=== PATIENT | female | born 1945 | race Caucasian/White ===

== ENCOUNTER 2022-04-23 17:48 | Emergency (ER) | payer OTHER, SELFPAY ==
--- NOTE | ~2022-04-23 | XR_ITS ---
EXAMINATION: XR RIBS, RIGHT CLINICAL INFORMATION: Injury and rib pain COMPARISON: None TECHNIQUE: 3 views of the right ribs were obtained. FINDINGS: Lungs are clear. No consolidation, pneumothorax, or pleural effusion. The cardiomediastinal silhouette and pulmonary vasculature are normal. Right breast soft tissue density likely breast implant. Calcified loose body projects at the left shoulder in the region of the subscapularis recess. Osseous structures are unremarkable. No acute displaced rib fracture are identified. XR/XR ribs RT min 3V w CXR1V IMPRESSION: 1. No acute pulmonary process. 2. No acute displaced rib fracture identified.
--- NOTE | ~2022-04-23 | CT_ITS ---
EXAMINATION: CT CHEST WITHOUT CONTRAST CLINICAL INFORMATION: Breast implant leakage COMPARISON: None TECHNIQUE: Multidetector volumetric CT imaging of the chest was done. Axial MIP volume rendering provided. Sagittal and coronal reformatted images were obtained. This CT examination was performed using dose optimization techniques as appropriate, variously including the following: *Automated exposure control *Adjustment of mA and/or kV according to patient size (this includes techniques or standardized protocols for targeted exams where dose is matched to indication/reason for exam; i.e. extremities or head) *Use of iterative reconstruction technique DLP: 329 mGy-cm FINDINGS: LUNGS: Diffuse mild bronchial thickening without bronchiectasis. No parenchymal consolidation. There are scattered pulmonary nodules which measure up to 4 mm (see inman images), largest within the left lower lobe on series 5, image 301 MEDIASTINUM: Normal heart size. Borderline aneurysmal dilatation of ascending aorta measuring up to 4.0 cm. No mediastinal or hilar lymphadenopathy. PLEURA: There is no pleural effusion. No pleural mass or thickening. CHEST WALL/AXILLA: Intact prepectoral saline breast implant on the right. No axillary lymphadenopathy. UPPER ABDOMEN: Hepatic steatosis. OSSEOUS STRUCTURES: No acute or suspicious osseous abnormalities. CT/CT chest wo con IMPRESSION: * Right prepectoral saline breast implant shows a normal contour. No evidence of implant rupture. * Scattered pulmonary nodules measure up to 4 mm. Presumably the patient has a history of breast cancer although no history is provided. Fleischner Society guidelines do not apply patients with a history of cancer. Follow-up CT chest interval is a clinical determination. * Ascending aorta is top normal in caliber measuring 4.0 cm. * Hepatic steatosis.
[2022-04-23 18:36] VITALS: BP 193/122; PULSE 98; RESP 18; TEMP 37.5; O2SAT 95; BMI 33.9
--- NOTE | 2022-04-23 21:10 | ED_ITS ---
HPI - General Adult General Chief complaint: General Medical Stated complaint: rib pain on R side Time Seen by Provider: 04/23/22 21:00 Source: patient Mode of arrival: ambulatory Limitations: no limitations History of Present Illness HPI narrative: Patient comes emergency room complaining of right-sided rib pain. The patient states that yesterday she was peeling green peas. One of the green peas fell to the ground and rolled away from her. Patient tried cleaning over a chair to grab the pea, patient put too much pressure on her ribs on the right side and since then she has had significant pain. Patient also states that she has noticed that her right breast implant got twice as big and is having breast discomfort. Related Data Previous Rx's Medication Instructions Recorded oxycodone 5 mg tablet 5 mg PO BID PRN pain #6 tabs 04/23/22 Allergies Allergy/AdvReac Type Severity Reaction Status Date / Time avocado Allergy Itching Verified 04/23/22 18:36 eggplant Allergy Itching Verified 04/23/22 18:36 latex Allergy Anaphylaxis Verified 04/23/22 18:36 Review of Systems Review of Systems: Constitutional : No Weight loss, No Fever, No Chills, No Night Sweats, No Fatigue, No Malaise ENT/Mouth : No Hearing loss, No Ear Pain, No Nasal Congestion, No Sinus Pain, No Hoarseness, No sore throat, No Rhinorrhea, No Swallowing Difficulty Eyes: No Eye Pain, No Swelling, No Redness, No Foreign Body, No Discharge, No Vision Changes Cardiovascular : No Chest Pain, No SOB, No Dyspnea on Exertion, No Orthopnea, No Edema, No Palpitations Respiratory : No Cough, No Sputum, No Wheezing, No Smoke Exposure, No Dyspnea Gastrointestinal : No Nausea, No Vomiting, No Diarrhea, No Constipation, No abdominal Pain, No Hematochezia, No Melena Genitourinary : no irregular bleeding, No Dysuria, No Urinary Frequency, No Hematuria, No Urinary Incontinence, No Urgency, No Flank Pain, No Urinary Flow Changes, No Hesitancy Musculoskeletal : No joint pain, No Myalgias, No Joint Swelling, complaining of right rib pain and complaining of right breast being twice the normal size Skin : No Skin Lesions, No rash Neuro : No Weakness, No Numbness, No Paresthesias, No Loss of Consciousness, No Dizziness, No Headache Psych : No Anxiety/Panic, No Depression, No SI/HI/AH/VH, No Social Issues, Heme/Lymph: No Bruising, No Bleeding,No Lymphadenopathy Endocrine : No Polyuria, No Polydipsia, No Temperature Intolerance [facility] Past Medical History Medical History (Updated 04/23/22 @ 22:44 by Charline Duarte MD) Hypertension Social History Social History Advance Directives: No Advance Directives Information Provided: No Physical Exam ED Vital Signs: Vital Signs - 24 hr 04/23/22 18:36 Temperature 99.5 F Pulse Rate 98 Respiratory Rate 18 Blood Pressure 193/122 H Pulse Oximetry 95 Oxygen Delivery Method Room Air BMI result Body Mass Index 33.9 Const Other: Appearance: Alert. Oriented X3. No acute distress. Eyes: Pupils equal, round and reactive to light. ENT: Pharynx normal. Neck: Normal inspection. Neck supple. No lymph nodes noted. No crepitus CVS: Normal heart rate and rhythm. Pulses normal. Normal S1 and S2 Respiratory: No respiratory distress. Breath sounds normal. No Wheezing. No rales Abdomen: Soft and nontender. No rigidity. No distention. Skin: Skin warm and dry. Normal skin color. Normal skin turgor. No ecchymosis, pain to palpation over the ribs on the right side and under the right axilla. Right breast is fluctuant, tender to palpation underneath the right breast Extremities: No lower extremity edema. No Lacerations. No Rash Neuro: Oriented X 3. No motor deficit. No sensory deficit. Moving all extremities. No slurred speech. CN 2 through 12 grossly intact Psych: calm, cooperative, normal affect Course Course Course Narrative: Chest x-ray was negative for fracture ribs. Patient states that her right breast it looks twice its normal size, concerned that the implant may have popped. CT scan shows normal breast implant. No rib fracture ribs. Patient received 1 dose of p.o. oxycodone. Medical Decision Making Imaging Data CT scan - chest: Radiologist's impression: FINDINGS: LUNGS: Diffuse mild bronchial thickening without bronchiectasis. No parenchymal consolidation. There are scattered pulmonary nodules which measure up to 4 mm (see inman images), largest within the left lower lobe on series 5, image 301? MEDIASTINUM: Normal heart size. Borderline aneurysmal dilatation of ascending aorta measuring up to 4.0 cm. No mediastinal or hilar lymphadenopathy.? PLEURA: There is no pleural effusion. No pleural mass or thickening.? CHEST WALL/AXILLA: Intact prepectoral saline breast implant on the right. No axillary lymphadenopathy. UPPER ABDOMEN: Hepatic steatosis.? OSSEOUS STRUCTURES: No acute or suspicious osseous abnormalities.? CT/CT chest wo con IMPRESSION: *? Right prepectoral saline breast implant shows a normal contour. No evidence of implant rupture. *? Scattered pulmonary nodules measure up to 4 mm. Presumably the patient has a history of breast cancer although no history is provided. Fleischner Society guidelines do not apply patients with a history of cancer. Follow-up CT chest interval is a clinical determination. *? Ascending aorta is top normal in caliber measuring 4.0 cm. *? Hepatic steatosis. Discharge Plan Discharge Clinical Impression: Costochondritis Patient Disposition: Home, Self-Care Instructions: Costochondritis (ED) Additional Instructions: Please follow-up with your primary care physician tomorrow. If you have any worsening or new symptoms, please return to the emergency room or call 911 Prescriptions: New oxycodone 5 mg tablet 5 mg PO BID PRN (Reason: pain) Qty: 6 0RF Rx Instructions: Partial Fill upon patient request.
[2022-04-23] MEDS: oxyCODONE HCl Immed Release 5 MG TABLET 2.5 MG PO (23:18)
== END 2022-04-23 23:27 | disposition home or self-care (01) ==
PROVIDERS: Emergency Provider Emergency Medicine
DX: R07.81 Pleurodynia (principal); M94.0 Chondrocostal junction syndrome [Tietze]; Z79.899 Other long term (current) drug therapy
CPT/HCPCS: 71101; 71250; 99283

== ENCOUNTER 2022-04-26 17:41 | Emergency (ER) | payer OTHER, MEDICARE, SELFPAY ==
[2022-04-26 18:30] VITALS: BP 179/113; PULSE 100; RESP 18; TEMP 36.7; O2SAT 95; BMI 34.1
--- NOTE | 2022-04-26 18:33 | ECG_ITS ---
Test Reason : CHEST PAIN Blood Pressure : / mmHG Vent. Rate : 099 BPM Atrial Rate : 099 BPM P-R Int : 184 ms QRS Dur : 108 ms QT Int : 374 ms P-R-T Axes : 066 -02 072 degrees QTc Int : 479 ms Normal sinus rhythm Incomplete left bundle branch block Minimal voltage criteria for LVH, may be normal variant ( [place]om[place] product ) Borderline ECG No previous ECGs available Referred By: Generic ED Physician Electronically Signed By:REBA ALLISON
[2022-04-26 18:47] VITALS: BP 175/116; PULSE 98; RESP 14; TEMP 36.9; O2SAT 97
--- NOTE | 2022-04-26 19:23 | ED_ITS ---
HPI - General Adult General Chief complaint: General Medical Stated complaint: High Blood Pressure Headache Time Seen by Provider: 04/26/22 19:23 Source: patient and family Mode of arrival: ambulatory Limitations: no limitations History of Present Illness HPI narrative: 76-year-old female who presents emergency department for evaluation of elevated blood pressure. The patient was seen here on Sunday (4 days prior to evaluation) for an injury to her right chest wall. The patient was leaning over a chair and developed pain in her right chest. She was seen in the emergency department had a CT scan of the chest which revealed no acute fracture her other cause for the pain. She was diagnosed with costochondritis. At that time she was noted to have an elevated blood pressure and was felt to be secondary to her pain. The patient states that her blood pressure normally runs 140/90. She has been taking her blood pressure at home and it has been as high as 170-178/112-115. The patient contacted her web weaver Dr. Elda Botello office and she was advised by nursing staff to go to the emergency department for evaluation. The patient states that she has been asymptomatic except for the right-sided chest pain. She denied headache, weakness, nausea, vomiting, shortness of breath, dyspnea on exertion, frequency, urgency, dysuria. She states she has lost 30 lb over 8 months. Related Data Previous Rx's Medication Instructions Recorded oxycodone 5 mg tablet 5 mg PO BID PRN pain #6 tabs 04/23/22 losartan 50 mg tablet 50 mg PO DAILY #30 tabs 04/26/22 Allergies Allergy/AdvReac Type Severity Reaction Status Date / Time acetaminophen Allergy Unknown Verified 04/26/22 18:29 avocado Allergy Itching Verified 04/26/22 18:28 eggplant Allergy Itching Verified 04/23/22 18:36 latex Allergy Anaphylaxis Verified 04/23/22 18:36 Review of Systems Review of Systems: Yes all other systems are reviewed and are negative [facility] Past Medical History [facility] Narrative: Past medical history: Diabetes mellitus, hypertension, hyperlipidemia, coronary disease, myocardial infarction 5 years prior, gastritis. Past surgical history: Partial nephrectomy secondary to renal carcinoma. Breast cancer status post mastectomy. Social history: She denies tobacco, alcohol and drug use. Medical History (Updated 04/26/22 @ 22:39 by Juan Guardado MD) Hypertension Social History Social History Patient Tobacco Use Status: Never used Tobacco Use of substances other than those prescribed or required for medical reasons: No Advance Directives: Yes Advance Directives Information Provided: No Advance Directives on File: No Physical Exam ED Vital Signs: Vital Signs - 24 hr 04/26/22 18:30 04/26/22 18:47 04/26/22 20:43 Temperature 98.1 F 98.4 F Pulse Rate 100 98 92 Respiratory Rate 18 14 12 Blood Pressure 179/113 H 175/116 H 175/115 H Pulse Oximetry 95 97 97 Oxygen Delivery Method Room Air Room Air Room Air BMI result Body Mass Index 34.1 Const Other: Awake, alert, female patient, very pleasant and cooperative, does not appear to be in distress, answers all questions appropriately, elevated BMI 34 HENMT Head: Yes normal to inspection, Yes normocephalic and Yes atraumatic Ears: external ears normal General nose exam: Normal external nose present Face and sinus: Yes normal facial exam Mouth: Normal oral and palatal mucosa present Throat: Yes posterior oropharynx normal Eyes General: appearance normal, both eyes and all related structures Pupils: Equal, round and reactive pupils present Neck Neck: Yes normal visual inspection, Yes no lymphadenopathy, Yes trachea midline and Yes supple Chest Chest palpation & inspection: normal inspection of the chest and tenderness (Left anterior chest wall tenderness under the left breast) Resp Effort & Inspection: normal respiratory effort and able to speak in complete sentences Auscultation: clear to auscultation bilaterally Cardio Rate: regular rate Rhythm: regular rhythm Heart sounds: S1 normal heart sound present, S2 normal heart sound present and no murmurs GI Inspection: Yes normal to inspection Palpation (GI): Soft to palpation, Tenderness to palpation present (GI) (Mild diffuse tenderness, moderate epigastric and moderate the LLQ) other (Left-sided hernia) and no guarding Auscultation: normal bowel sounds General: Yes no CVA tenderness Back/Spine/Pelvis Back: no CVA tenderness Skin General skin exam: no rashes or lesions noted Neuro Cranial nerves: Yes CN's II-XII intact bilaterally and Yes Equal, round and reactive pupils present Cognition (Neuro): normal cognition Motor exam (neuro): 5/5 motor strength present throughout Extrem General: Yes normal to inspection Psych Appearance: grossly normal Speech and movement: Normal speech and movement present Affect: normal affect Attitude: cooperative Thought process: Normal thought process present Thought content: Normal thought content present Course Course Course Narrative: 76-year-old female who presents emergency department for evaluation of elevated blood pressures. Patient did have a chest wall injury 4 days prior, was seen in the emergency department and had a negative CT scan of the chest. Patient was d iagnosed with costochondritis. At that time the patient was noted to have elevated blood pressures. Patient has been checking her blood pressures at home and they have been elevated above her baseline. Patient was advised to go to the emergency department by her providers office for evaluation. Except for the patient's chest pain she has been asymptomatic. Patient's physical examination did reveal tenderness palpation of her right chest wall but this is secondary to her injury, she also has diffuse abdominal tenderness with epigastric and left upper quadrant tenderness. Patient's blood pressures here in the emergency department or 179/113 and 175/116. I did order laboratory evaluation to include CBC, CMP, troponin, TSH with reflex T4, urinalysis. I will also obtain an EKG on the patient. Patient's neurologic exam was nonfocal I do not think that she needs imaging of her brain since that are not think that she has a stroke as the cause for elevated blood pressure. 2243: The patient's laboratory evaluation did reveal an elevated BUN of 35 with a normal creatinine 0.98. The patient's urinalysis did reveal 4+ protein suggests the patient has significant protein urea. Urinalysis was unremarkable and not consistent with a urinary tract infection. EKG was unremarkable and troponin was detectable but not elevated. Given her hypertension and proteinuria, the patient's losartan was increased from 25 mg once a day to 50 mg once a day. The patient was advised to check her blood pressure 3 times a week, write these down and discuss these readings with her doctor. Patient has an elevated TSH with a pending T4. I did discuss this with the patient the patient states she was seeing a electronics installer within the next 1-2 weeks. Medical Decision Making Lab Data Lab results reviewed: Yes I reviewed the patient's lab results. Result diagrams: 04/26/22 21:16 04/26/22 21:16 Labs: Lab Results 04/26/22 04/26/22 04/26/22 Range/Units 20:51 21:16 21:16 WBC 6.1 (4.8-10.8) X10*3/uL RBC 4.13 L (4.20-5.50) X10*6/uL Hgb 12.6 (12.0-16.0) g/dl Hct 35.2 L (37.0-47.0) % MCV 85.2 (80.0-98.0) fL MCH 30.5 (27.0-33.0) pg MCHC 35.8 H (31.0-35.0) g/dl RDW 13.5 (11.0-16.0) % Plt Count 165 (160-400) X10*3/uL MPV 9.7 (9.4-12.3) fL Immature Gran % (Auto) 0.3 (0.0-0.4) % Neut % (Auto) 46.7 (45-73) % Lymph % (Auto) 39.4 (20-40) % [place] % (Auto) 10.1 (2-11) % Eos % (Auto) 3.3 (0-4) % Baso % (Auto) 0.2 (0-2) % Lymph # (Auto) 2.4 (1.2-4.9) X10*3/uL [place] # (Auto) 0.6 (0.1-1.2) X10*3/uL Eos # (Auto) 0.2 (0.0-0.4) X10*3/uL Baso # (Auto) 0.0 (0.0-0.2) X10*3/uL Abs Immat Gran (auto) 0.02 (0.00-0.03) X10*3/uL Absolute Neuts (auto) 2.9 (2.0-8.3) x10*3/uL Absolute Nucleated RBC 0.000 (0.0-0.012) X10*3/uL Nucleated RBC % (auto) 0.0 (0.0-0.2) /100WBC Sodium (135-145) mmol/L Potassium (3.3-5.1) mmol/L Chloride (96-108) mmol/L Carbon Dioxide (22-29) mmol/L Anion Gap (12-20) BUN (9-16) mg/dL Creatinine (0.5-1.4) mg/dL Estim Creat Clear Calc Estimated GFR Random Glucose (60-115) mg/dL Calcium (8.4-10.2) mg/dL Total Bilirubin (0.0-1.0) mg/dL AST (5-31) U/L ALT (0-31) U/L Alkaline Phosphatase (39-117) U/L Troponin I High Sens 5.1 (<3.5-17.0) ng/L Total Protein (6.5-8.0) g/dL Albumin (3.5-5.0) g/dL TSH (0.32-4.0) uIU/mL Free T4 (0.71-1.85) ng/dL Urine Color Yellow Urine Appearance Clear Urine pH 5.5 (5.0-8.0) Ur Specific [place] 1.020 (1.005-1.025) Urine Protein >=1000 (4+) H (Neg-Trace) mg/dL Urine Glucose (UA) Negative (Negative) mg/dL Urine Ketones Negative (Negative) mg/dL Urine Blood Negative (Negative) Urine Nitrite Negative (Negative) Ur Leukocyte Esterase Moderate (2+) H (Negative) Urine RBC 3-5 H (0-2) /HPF Urine WBC 11-20 H (0-5) /HPF Ur Squamous Epith Cells 6-10 (0-2) /HPF Urine Bacteria Trace (None Seen) Hyaline Casts 0-2 (0-2) /LPF Granular Casts Present 04/26/22 04/26/22 Range/Units 21:16 21:16 WBC (4.8-10.8) X10*3/uL RBC (4.20-5.50) X10*6/uL Hgb (12.0-16.0) g/dl Hct (37.0-47.0) % MCV (80.0-98.0) fL MCH (27.0-33.0) pg MCHC (31.0-35.0) g/dl RDW (11.0-16.0) % Plt Count (160-400) X10*3/uL MPV (9.4-12.3) fL Immature Gran % (Auto) (0.0-0.4) % Neut % (Auto) (45-73) % Lymph % (Auto) (20-40) % [place] % (Auto) (2-11) % Eos % (Auto) (0-4) % Baso % (Auto) (0-2) % Lymph # (Auto) (1.2-4.9) X10*3/uL [place] # (Auto) (0.1-1.2) X10*3/uL Eos # (Auto) (0.0-0.4) X10*3/uL Baso # (Auto) (0.0-0.2) X10*3/uL Abs Immat Gran (auto) (0.00-0.03) X10*3/uL Absolute Neuts (auto) (2.0-8.3) x10*3/uL Absolute Nucleated RBC (0.0-0.012) X10*3/uL Nucleated RBC % (auto) (0.0-0.2) /100WBC Sodium 139 (135-145) mmol/L Potassium 4.6 (3.3-5.1) mmol/L Chloride 106 (96-108) mmol/L Carbon Dioxide 22 (22-29) mmol/L Anion Gap 16 (12-20) BUN 35 H (9-16) mg/dL Creatinine 0.98 (0.5-1.4) mg/dL Estim Creat Clear Calc 55.8 Estimated GFR 55 Random Glucose 101 (60-115) mg/dL Calcium 8.8 (8.4-10.2) mg/dL Total Bilirubin 0.2 (0.0-1.0) mg/dL AST 32 H (5-31) U/L ALT 29 (0-31) U/L Alkaline Phosphatase 41 (39-117) U/L Troponin I High Sens (<3.5-17.0) ng/L Total Protein 6.9 (6.5-8.0) g/dL Albumin 3.6 (3.5-5.0) g/dL TSH 10.06 H (0.32-4.0) uIU/mL Free T4 0.78 (0.71-1.85) ng/dL Urine Color Urine Appearance Urine pH (5.0-8.0) Ur Specific Randolph (1.005-1.025) Urine Protein (Neg-Trace) mg/dL Urine Glucose (UA) (Negative) mg/dL Urine Ketones (Negative) mg/dL Urine Blood (Negative) Urine Nitrite (Negative) Ur Leukocyte Esterase (Negative) Urine RBC (0-2) /HPF Urine WBC (0-5) /HPF Ur Squamous Epith Cells (0-2) /HPF Urine Bacteria (None Seen) Hyaline Casts (0-2) /LPF Granular Casts ECG Data Attestation: I personally reviewed and interpreted this ECG as follows: Interpretation: 1859: Normal sinus rhythm rate of 99, normal ID interval, prolonged QRS duration of 108 milliseconds prolonged QTC interval of 479 milliseconds, no ST segment elevation, no ST segment depression, Q-wave in lead 3 and AVF, no PACs, no PVCs, incomplete left bundle-branch block, no old EKG for comparison. Discharge Plan Discharge Clinical Impression: Hypertension, Diabetes mellitus with proteinuria Patient Disposition: Home, Self-Care Additional Instructions: Your EKG was unremarkable. Your high sensitivity troponin I was detectable but not elevated at 5.1 (less than 17 is normal in women). This is reassuring and suggests that you did not have a heart attack. Your kidney numbers revealed an elevated BUN of 35 but a normal creatinine of 0.98 You do not have a urine infection based on your urine. Your urine revealed 4+ protein (normal is no protein in the urine). Given your high protein in your urine and your high blood pressure, I believe that you should increase your losartan from 25 mg once a day to 50 mg once a day. You should discuss this with your doctor as well. Your thyroid stimulating hormone ( TSH) was high at 10.06. (normal is 0.32- 4.0.) A high TSH can sometimes suggests that your thyroid is underactive. Your free T4 (thyroid hormone) is pending. You can check this through the patient portal. If this is low then you have an under active thyroid. If this is normal then you need to see an electronics installer determine why you TSH is high. Check your blood pressures on Mondays, Wednesdays and Fridays and write these down to showed to your doctor. When we make a change in your blood pressure medications it takes 4-6 weeks for your blood pressure to respond. Follow-up with your doctor in 2 days. Please return to the emergency department if your symptoms get worse or if you develop any symptoms that are concerning to you. Prescriptions: New losartan 50 mg tablet 50 mg PO DAILY Qty: 30 0RF No Action oxycodone 5 mg tablet 5 mg PO BID PRN (Reason: pain) Qty: 6 0RF Rx Instructions: Partial Fill upon patient request.
[2022-04-26 20:43] VITALS: BP 175/115; PULSE 92; RESP 12; O2SAT 97
[2022-04-26 20:58] LABS: Appearance Urine Clear; Color Urine Yellow; Glucose Urine UA Negative (Negative); Leukocyte Esterase Urine Moderate (2+) (Negative); Nitrite Urine Negative (Negative); PH 5.5 (5.0-8.0); Urine Blood Negative (Negative); Urine Ketones Negative (Negative); Urine Protein >=1000 (4+) mg/dL (Neg-Trace)
[2022-04-26 21:23] LABS: MANUAL DIFF FLAG NO
[2022-04-26 21:24] LABS: Basophils Percent Auto 0.2 % (0-2); Eosinophils Absolute Auto 0.2 X10*3/uL (0.0-0.4); Eosinophils Percent Auto 3.3 % (0-4); Hematocrit 35.2 % (37.0-47.0); Hemoglobin 12.6 g/dl (12.0-16.0); Imm Gran Abs Auto 0.02 X10*3/uL (0.00-0.03); Imm Gran Pct Auto 0.3 % (0.0-0.4); Lymphocytes Absolute Auto 2.4 X10*3/uL (1.2-4.9); Lymphocytes Percent Auto 39.4 % (20-40); Mean Corpuscular HGB Conc 35.8 g/dl (31.0-35.0); Mean Corpuscular Hemoglobin 30.5 pg (27.0-33.0); Mean Corpuscular Volume 85.2 fL (80.0-98.0); Mean Platelet Volume 9.7 fL (9.4-12.3); Monocytes Absolute Auto 0.6 X10*3/uL (0.1-1.2); Monocytes Percent Auto 10.1 % (2-11); Neutrophils Absolute Auto 2.9 x10*3/uL (2.0-8.3); Neutrophils Percent Auto 46.7 % (45-73); Platelet Count 165 X10*3/uL (160-400); Red Blood Count 4.13 X10*6/uL (4.20-5.50); Red Cell Distribution Width 13.5 % (11.0-16.0); White Blood Count 6.1 X10*3/uL (4.8-10.8)
[2022-04-26 21:38] LABS: Bacteria Urine Trace (None Seen); Hyaline Casts Urine 0-2 /LPF (0-2); UACC Culture Trigger YES
[2022-04-26 21:39] LABS: Granular Casts Urine Present
[2022-04-26 21:49] LABS: Alanine Aminotransferase 29 U/L (0-31); Albumin Level 3.6 g/dL (3.5-5.0); Alkaline Phosphatase 41 U/L (39-117); Anion Gap 16 (12-20); Aspartate Amino Transferase 32 U/L (5-31); Bilirubin Total 0.2 mg/dL (0.0-1.0); Blood Urea Nitrogen 35 mg/dL (9-16); Calcium 8.8 mg/dL (8.4-10.2); Carbon Dioxide 22 mmol/L (22-29); Chloride 106 mmol/L (96-108); Creatinine Clr Calc Pharmacy 55.8; Estimated Glomerular Filt Rate 55; Glucose Random 101 mg/dL (60-115); Potassium 4.6 mmol/L (3.3-5.1); Sodium 139 mmol/L (135-145); Total Protein 6.9 g/dL (6.5-8.0)
[2022-04-26 21:52] LABS: Troponin-I High Sensitivity 5.1 ng/L (<3.5-17.0)
[2022-04-26 22:06] LABS: TSH reflex Free T4 10.06 uIU/mL (0.32-4.0)
[2022-04-26 22:39] LABS: Free T4 (Free Thyroxine) 0.78 ng/dL (0.71-1.85)
[2022-04-26 23:09] VITALS: BP 173/114; PULSE 93; RESP 20; O2SAT 100
== END 2022-04-26 23:21 | disposition home or self-care (01) ==
PROVIDERS: Emergency Provider Emergency Medicine Emergency Medical Services
DX: I10 Essential (primary) hypertension (principal); E11.9 Type 2 diabetes mellitus without complications; R80.9 Proteinuria, unspecified
CPT/HCPCS: 36415; 80053; 81001; 81003; 84439; 84443; 84484; 85025; 87086; 93005; 99284